=== PATIENT | male | born 1965 | race Caucasian/White ===

== ENCOUNTER 2018-12-16 08:21 | Observation (INO) | payer BC, OTHER ==
[~2018-12-16] VITALS: Ht 182.9 cm; Wt 149.3 kg
[~2018-12-16 08:21] MED LIST: Z.0.BENTYL20 MG; Z.0.DEXILANT60 MG; Z.0.NORCO 10-325 T1; Z.0.OMEPRAZOLE40 MG
--- OUTSIDE RECORDS SUMMARY | 2018-12-16 08:24 | XMS REPORT | Continuity of Care Document ---
Author Author [facility] Interface Address Unknown Phone Unavailable Problems Problem Status Onset Date Classification Date Reported Comments Source UNSPECIFIED ROTATOR CUFF TEAR OR RUPTURE Active 03/11/2018 [facility] Medications Medication Details Route Status Patient Instructions Ordering Provider Order Date Source Allergies, Adverse Reactions, Alerts Substance Category Reaction Severity Reaction type Status Date Reported Comments Source Immunizations Immunization Date Given Site Status Last Updated Comments Source Results Order Name Results Value Reference Range Date Interpretation Comments Source Shoulder series DX Shoulder series DX Study: Left shoulder, 3 views Clinical Indication: - M75.102 Unspecified rotator cuff tear or rupture of left shoulder, not specified as traumatic Comparison: None FINDINGS: Multiple views of the left shoulder show no acute bony fracture, joint dislocation, or suspicious osseous lesion. Joint spaces are well-preserved. Bony mineralization is normal. Soft tissues are unremarkable. IMPRESSION: Normal exam of the left shoulder. SL: [id number] 03/11/2018 - - Read by: Oneal Rudolph MD Dictated Date/time: 03/11/18 14:02 Electronically Signed by: Oneal Rudolph MD 03/11/18 14:03 FINAL REPORT [facility] Vital Signs Vital Sign Value Date Comments Source Encounters Location Location Details Encounter Type Encounter Number Reason For Visit Attending Provider ADM Date DC Date Status Source [facility] Outpatient [id number] Avril Bryant 03/11/2018 03/12/2018 [facility] Procedures Procedure Code Date Perfomer Comments Source
--- OUTSIDE RECORDS SUMMARY | 2018-12-16 08:24 | XMS REPORT | Summary of Care ---
Author Author [facility] Organization [facility] Address Unknown Phone Unavailable Encounter HQ Encntr_alias(FIN) [id number] Date(s): 03/11/18 - 03/11/18 [facility] [address] [place] [address]- Discharge Disposition: Home or Self Care Attending Physician: Avril Bryant MD Vital Signs No data available for this section Problem List No data available for this section Allergies, Adverse Reactions, Alerts No data available for this section Medications No data available for this section Results No data available for this section Immunizations No data available for this section Procedures No data available for this section Social History No data available for this section Assessment and Plan No data available for this section
--- OUTSIDE RECORDS SUMMARY | 2018-12-16 08:24 | XMS REPORT | Clinical Summary ---
Author Author [facility] Address Unknown Phone Unavailable Care Team Providers Care Casing Soaker Name Role Phone Stuart Pacheco MD PCP Allergies No Known Allergies Medications End Date Status Medication Sig Dispensed Refills Start Date Active acetaminophen-codeine acetaminophen 0 (TYLENOL WITH CODEINE #3) 300 300-30 mg per tablet mg-codeine 30 mg tablet Active finasteride (PROSCAR) 5 Take 1 tablet 0 mg tablet every day by oral route. Active methylPREDNISolone as directed 0 (MEDROL, FANG,) 4 mg tablet Active tamsulosin (FLOMAX) 0.4 Take 1 0 mg capsule,extended capsule every release 24hr day by oral route. 05/03/2018 meloxicam (MOBIC) 15 mg Take 1 tablet 30 tablet 2 tabletIndications: Right (15 mg total) 8 wrist tendonitis by mouth daily for 30 days. Active Problems Problem Noted Date Right wrist pain 04/03/2018 Osteoarthritis of left knee 06/29/2016 Encounters Care Team Description Date Type Specialty Wilmer Smith MD Right wrist tendonitis (Primary Dx); Neuropathy of right ulnar nerve at wrist 04/03/2018 Office Visit Orthopedic Surgery Isrrael Mondragon MD Shoulder impingement, left (Primary Dx); Acute pain of left shoulder 03/25/2018 Office Visit Sports Medicine after 12/15/2017 Family History Medical History Relation Name Comments Diabetes Brother Relation Name Status Comments Brother Social History Date Tobacco Use Types Packs/Day Years Used Never Smoker Smokeless Tobacco: Snuff Current User Tobacco Cessation: Ready to Quit: No; Counseling Given: No Alcohol Use Drinks/Week oz/Week Comments Yes Sex Assigned at Date Recorded Not on file Industry Job Start Date Occupation Not on file Not on file Not on file Travel End Travel History Travel Start No recent travel history available. Last Filed Vital Signs Not on file Plan of Treatment Health Maintenance Due Date Last Done Comments COLON CANCER SCREENING 2016 SHINGLES VACCINES (1 of 2016 2) INFLUENZA VACCINE 06/25/2018 Procedures Comments Procedure Name Priority Date/Time Associated Diagnosis XR WRIST 3+ VW RIGHT Routine 04/03/2018 Right wrist pain 2:05 PM CDT XR SHOULDER 2+ VW LEFT Routine 03/25/2018 Sprain of left shoulder, 4:27 PM CDT unspecified shoulder sprain type, initial encounter after 12/15/2017 Results * XR Wrist 3+ Vw Right (04/03/2018 2:05 PM CDT) Narrative Performed At [facility] Xrays: The x-rays were ordered and personally reviewed by me. 3 views of the right wrist Reason for exam: right wrist pain Impression: Right wrist with a calcification noted just proximal to the lunate Performing Organization Address [facility] Phone Number [facility] [address] [place] [address] * XR Shoulder 2+ Vw Left (03/25/2018 4:27 PM CDT) Narrative Performed At [facility] Normal joint spaces with no obvious fractures or dislocations Performing Organization Address [facility] Phone Number [facility] [address] [place] [address] after 12/15/2017 Insurance Payer Benefit Subscriber ID Type Phone Address Plan / Group AETNA AETNA PPO xxxxxxxxxx PPO OPEN CHOICE Advance Directives Patient has advance care planning documents on file. For more information, sonny e contact: Jim Swan [address] [place] [address]
[2018-12-16] MEDS ORDERED: KETOROLAC TROMETHAMINE 30 MG/ML VIAL IV STA (08:50)
[2018-12-16 09:22] LABS: BASOPHILS # (AUTO) 0.1 (0.0-0.1); BASOPHILS % 0.7 % (0.0-1.0); EOSINOPHILS # (AUTO) 0.2 (0.0-0.4); EOSINOPHILS % 2.6 % (0.0-6.0); HEMATOCRIT 46.7 % (38.2-49.6); HEMOGLOBIN 15.9 g/dL (14.0-18.0); LYMPHOCYTES # (AUTO) 2.4 (1.0-3.2); LYMPHOCYTES % 34.4 % (18.0-39.1); MEAN CORPUSCULAR HEMOGLOBIN 30.1 pg (28-32); MEAN CORPUSCULAR VOLUME 88.4 fL (81-99); MONOCYTES # (AUTO) 0.4 (0.2-0.8); MONOCYTES % 5.1 % (4.4-11.3); NEUTROPHILS % 56.9 % (38.7-80.0); PLATELET COUNT 220 x10e3/uL (140-360); RED BLOOD COUNT 5.28 x10e6/uL (4.3-5.7); RED CELL DISTRIBUTION WIDTH 12.6 % (11.7-14.4)
--- NOTE | 2018-12-16 09:29 | Diagnostic Imaging Report ---
EXAMINATION: CHEST 2 VIEWS INDICATION: Chest pain COMPARISON: None FINDINGS: TUBES and LINES: None. LUNGS: Lungs are well inflated. Mild patchy opacity at the left lung base, likely atelectasis. There is no evidence of lobar consolidation or pulmonary edema. PLEURA: No pleural effusion or pneumothorax. HEART AND MEDIASTINUM: The cardiomediastinal silhouette is unremarkable. BONES AND SOFT TISSUES: No acute osseous lesion. Soft tissues are unremarkable. UPPER ABDOMEN: No free air under the diaphragm. IMPRESSION: No acute radiographic abnormality. Signed by: Dr. Jailyn Ruiz MD on 12/16/2018 9:25 AM
[2018-12-16 10:35] LABS: ALANINE AMINOTRANSFERASE 34 IU/L (0-55); ALBUMIN 3.7 g/dL (3.5-5.0); ALBUMIN/GLOBULIN RATIO 1.2 (0.8-2.0); ALKALINE PHOSPHATASE 64 IU/L (40-150); AMYLASE 48 U/L (25-125); ANION GAP 12.8 mmol/L (8-16); BLOOD UREA NITROGEN 14 mg/dL (7-26); BUN/CREATININE RATIO 15 (6-25); CALCIUM 8.5 mg/dL (8.4-10.2); CARBON DIOXIDE 27 mmol/L (22-29); CHLORIDE 101 mmol/L (98-107); CREATINE KINASE 164 IU/L (30-200); CREATININE, SERUM 0.93 mg/dL (0.72-1.25); EST GLOMERULAR FILTRATION RATE > 60 ML/MIN (60-); GLUCOSE 146 mg/dL (74-118); LIPASE 179 U/L (8-78); POTASSIUM 3.8 mmol/L (3.5-5.1); SODIUM 137 mmol/L (136-145)
[2018-12-16 13:24] LABS: CLARITY,URINE SL CLOUDY (CLEAR); COLOR,URINE YELLOW (YELLOW)
[2018-12-16 13:25] LABS: BILIRUBIN,URINE NEGATIVE (NEGATIVE); KETONES,URINE NEGATIVE (NEGATIVE); LEUKOCYTE ESTERASE ,URINE NEGATIVE (NEGATIVE); NITRITE,URINE NEGATIVE (NEGATIVE); PROTEIN,URINE DIPSTICK NEGATIVE (NEGATIVE); URINE UROBILINOGEN 0.2 mg/dL (0.2 - 1)
[2018-12-16 13:34] LABS: EPITHELIAL CELLS,URINE RARE /LPF; RBC,URINE 0-5 /HPF (0-5)
--- NOTE | 2018-12-16 15:19 | Diagnostic Imaging Report ---
EXAMINATION: CT of the abdomen and pelvis with contrast. TECHNIQUE: Helical CT images of the abdomen and pelvis were performed from the lung bases to the lesser trochanters after the intravenous administration of 150 cc of Isovue 300 and the oral administration of none. Coronal and sagittal reformatted images were obtained. Dose modulation, iterative reconstruction, and/or weight based adjustment of the mA/kV was utilized to reduce the radiation dose to as low as reasonably achievable. COMPARISON: None. CLINICAL HISTORY:Left side abdominal pain DISCUSSION: ABDOMEN/PELVIS: LOWER THORAX:Unremarkable. HEPATOBILIARY: Hepatic steatosis. No focal lesion. No intra-or extrahepatic biliary ductal dilation. Small calcified gallstone. SPLEEN: No splenomegaly. PANCREAS: No focal masses or ductal dilatation. ADRENALS: No adrenal nodules. KIDNEYS/URETERS: No hydronephrosis, stones, or solid mass lesions. PELVIC ORGANS/BLADDER: The bladder is normal. PERITONEUM/RETROPERITONEUM: No free air or fluid. LYMPH NODES: No intra-abdominal, retroperitoneal, pelvic or inguinal lymphadenopathy. VESSELS: Unremarkable. GI TRACT: Colonic diverticulosis particularly within the sigmoid colon. No inflammatory change. BONES AND SOFT TISSUE: No bony destructive lesions. No soft tissue abnormalities. IMPRESSION: Colonic diverticulosis without inflammatory change. Small calcified gallstone. Signed by: Dr. Noah Chatman M.D. on 12/16/2018 3:16 PM
[2018-12-16] MEDS ORDERED: ONDANSETRON HCL INJ 2MG/ML 2ML 2 MG/ML VIAL IV PRN (17:45)
[2018-12-16] MEDS ORDERED: HYDROMORPHONE 1MG/1ML INJ IV PRN (17:45)
[2018-12-16] MEDS: SODIUM CHLORIDE 0.9% 1000ML 1,000 ML IV SCH ×2 (18:05→23:41)
--- OUTSIDE RECORDS SUMMARY | 2018-12-16 19:01 | XMS REPORT | Clinical Summary ---
Author Author [facility] Address Unknown Phone Unavailable Care Team Providers Care Field Technical Support Consultant Name Role Phone Stuart Pacheco MD PCP [...] proximal to the lunate Performing Organization Address [facility] Phone Number [employer] [address] [place] [address] * XR Shoulder 2+ Vw Left (03/25/2018 4:27 PM CDT) Narrative Performed At [facility] Normal joint spaces with no obvious fractures or dislocations Performing Organization Address [facility] Phone Number [employer] [address] [place] [address] after 12/15/2017 Insurance Payer Benefit Subscriber ID Type Phone Address Plan / Group AETNA AETNA PPO xxxxxxxxxx PPO OPEN CHOICE Advance Directives Patient has advance care planning documents on file. For more information, sonny e contact: Jim Swan [address] [place] [address]
--- OUTSIDE RECORDS SUMMARY | 2018-12-16 19:01 | XMS REPORT ---
Author Author [facility] Address Unknown Phone Unavailable Care Team Providers Care Inker Name Role Phone Hever MICHELLE Unavailable Unavailable Problems This patient has no known problems. Allergies, Adverse Reactions, Alerts This patient has no known allergies or adverse reactions. Medications This patient has no known medications. Results Test Description Test Time Test Comments Text Results Atomic Results Result Comments CT ABDOMEN/PELVIS W 2018-12-16 15:00:00 [place] [id number] Patient Name: OTILIA ECKERT MR #: [id number] : 1965 Age/Sex: 53/M Req #: [id number] Adm Physician: Ordered by: ISAC MICHELLE MD Report #: [id number] Location: ER Room/Bed: Procedure: [id number] CT/CT ABDOMEN/PELVIS W Exam Date: 12/16/18 Exam Time: 1345 REPORT STATUS: Signed EXAMINATION: CT of the abdomen and pelvis with contra st. TECHNIQUE: Helical CT images of the abdomen and pelvis were performed from the lung bases to the lesser trochanters after the intravenous administration of 150 cc of Isovue 300 and the oral administration of none. Coronal and sagittal reformatted images were obtained. Dose modulation, iterative reconstruction, and/or weight based adjustment of the mA/kV was utilized to reduce the radiation dose to as low as reasonably achievable. COMPARISON: None. CLINICAL HISTORY:Left side abdominal pain DISCUSSION: ABDOMEN/PELVIS: LOWER THORAX:Unremarkable. HEPATOBILIARY: Hepatic steatosis. No focal lesion. No intra-or extrahepatic biliary ductal dilation. Small calcified gallstone. SPLEEN: No splenomegaly. PANCREAS: No focal masses or ductal dilatation. ADRENALS: No adrenal nodules. KIDNEYS/URETERS: No hydronephrosis, stones, or solid mass lesions. PELVIC ORGANS/BLADDER: The bladder is normal. PERITONEUM/RETROPERITONEUM: No free air or fluid. LYMPH NODES: No intra- abdominal, retroperitoneal, pelvic or inguinal lymphadenopathy. VESSELS: Unremarkable. GI TRACT: Colonic diverticulosis particularly within the sigmoid colon. No inflammatory change. BONES AND SOFT TISSUE: No bony destructive lesions. No soft tissue abnormalities. IMPRESSION: Colonic diverticulosis without inflammatory change. Small calcified gallstone. Signed by: Dr. Jackson Borrego M.D. on 12/16/2018 3:16 PM Dictated By: JACKSON BORREGO MD 1516 Transcribed By: JOSH on 12/16/18 1516 COPY TO: ISAC MICHELLE MD CHEST 2 VIEWS 2018-12-16 09:24:00 [place] [id number] Patient Name: OTILIA ECKERT MR #: [id number] : 1965 Age/Sex: 53/M Req #: [id number] Adm Physician: Ordered by: ISAC MICHELLE MD Report #: [id number] Location: ER Room/Bed: Procedure: [id number] DX/CHEST 2 VIEWS Exam Date: 12/16/18 Exam Time: 0900 REPORT STATUS: Signed EXAMINATION: CHEST 2 VIEWS INDICATION: Chest pain COMPARISON: None FINDINGS: TUBES and LINES: None. LUNGS: Lungs are well inflated. Mild patchy opacity at the left lung base, likely atelectasis. There is no evidence of lobar consolidation or pulmonary edema. PLEURA: No pleural effusion or pneumothorax. HEART AND MEDIASTINUM: The cardiomediastinal silhouette is unremarkable. BONES AND SOFT TISSUES: No acute osseous lesion. Soft tissues are unremarkable. UPPER ABDOMEN: No free air under the diaphragm. IMPRESSION: No acute radiographic abnormality. Signed by: Dr. Shakira Mtz MD on 12/16/2018 9:25 AM Dictated By: SHAKIRA MTZ MD 4 Transcribed By: JOSH on 12/16/18924 COPY TO: ISAC MICHELLE MD
[2018-12-16] MEDS ORDERED: no home meds (19:21)
[2018-12-16] MEDS ORDERED: IOPAMIDOL 370 MG/ML 200 ML INFUS..BTL INJ ONE (20:45)
[2018-12-16] MEDS ORDERED: SODIUM CHLORIDE 0.9% 50ML 50 ML ONE (20:45)
[2018-12-16 21:49] LABS: CREATINE KINASE MB 1.1 ng/mL (0-5.0)
[2018-12-16 22:08] VITALS: BP 170/88
--- NOTE | 2018-12-16 22:10 | NUR ---
RECEIVED PATIENT AAO3 FROM ER VIA WHEELCHAIR. RESP EVEN AND UNLABORED, RA. DENIES CHEST PAIN. STATES LUQ PAIN IS 3/10, BUT "TOLERABLE". PATIENT IS AMB, STEADY GAIT. TELE #12 - SR. SKIN INTACT. DENIES ANY HOME MEDS. UPDATED PATIENT ON PLAN OF CARE. NO NEEDS VOICED AT THIS TIME. WILL CONTINUE TO MONITOR THE PATIENT CLOSELY.
[2018-12-16 22:39] VITALS: BP 170/88
[2018-12-16 22:50] VITALS: BP 170/88
--- NOTE | 2018-12-17 01:50 | Consultation ---
DATE OF CONSULTATION: December 16, 2018 Patient admitted on the 16 of [address] Turner and seen in consultation on the 16 of December. HISTORY: This 53-year-old patient presented to the emergency room complaining of chest pain, and he was kindly referred by Dr. Turner for cardiac evaluation. The patient stated that he was having some left-sided chest pain which he described being deep under his ribcage for about 1 month. The pain increases with intensity on and off, however, it has been unrelenting and was getting worse, and according to the advice of his who is a nurse at [facility] [employer], he went here to the emergency room and had evaluation including EKG which is normal, a CT scan of the abdomen showed a single gallstone. There is some elevation of the lipase with remainder of the chemistry being within normal limits. The patient states that the pain is sharp, however, it increased in intensity. He feels the pain across his chest was like a pressure or tightness and this may happen with anxiety. It is not related to any deep breathing and he has not noted any tender area. He has tried Tylenol and ibuprofen and neither one have helped his pain. 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 It is of significance that about a year ago he stated that he was leaning over an air conditioner compressor and developed some left-sided chest pain and was told that he had a fracture of 2 ribs. The patient states that he is known to have hyperlipidemia, but is on no medications. SOCIAL HISTORY: Negative. FAMILY HISTORY: Revealed patient is adopted, however, he is in contact with his mother and grandparents. The grandparents apparently reached age of over 90 and are healthy and also his mother has no apparent illness. The patient does not know his father. REVIEW OF SYSTEMS: The remainder of systems reviewed, revealed patient denies any fever, headache, sore throat. He denies any shortness of breath. The patient denies any right-sided abdominal pain. Has no nausea, vomiting, diarrhea, constipation. Patient denies any leg pain or leg swelling. PHYSICAL EXAMINATION: VITAL SIGNS: Reveals a blood pressure 140/84. NECK: Carotid pulses are present. CHEST: Clear to auscultation. CARDIOVASCULAR SYSTEM: There is a normal apical impulse. The rhythm is regular. First and second are normal. There is no S3. There is no rub. ABDOMEN: Soft. There is no tenderness, no organomegaly. EXTREMITIES: Pulses are present 2+ bilaterally. There is no peripheral edema. NEUROLOGIC: Does not reveal any motor defect, and cranial nerves are intact. IMPRESSION: 1. Chest pain syndrome. 2. Gallstone. 3. History of hyperlipidemia. 4. Elevation of lipase. The patient's electrocardiogram is normal, however, I would recommend a nuclear treadmill test since the patient has hyperlipidemia by history and is significantly overweight. Also, an echocardiogram may be helpful for further evaluation of his chest pain as well as possible CT scan of the chest, x-ray of his left ribs since he was told in the past to have some rib fracture despite having no localized tenderness. However, he says the pain sometimes radiates to his dorsal spine and could be neuralgia, which may also be considered in the differential diagnosis of his chest pain. Thank you very much for letting me see this very nice patient. Job#: [id number]
[2018-12-17 04:00] VITALS: BP 162/93
[2018-12-17 04:54] LABS: BASOPHILS % 0.5 % (0.0-1.0); EOSINOPHILS # (AUTO) 0.2 (0.0-0.4); EOSINOPHILS % 2.8 % (0.0-6.0); HEMATOCRIT 42.6 % (38.2-49.6); HEMOGLOBIN 14.5 g/dL (14.0-18.0); LYMPHOCYTES # (AUTO) 2.5 (1.0-3.2); LYMPHOCYTES % 31.2 % (18.0-39.1); MEAN CORPUSCULAR HEMOGLOBIN 29.8 pg (28-32); MEAN CORPUSCULAR VOLUME 87.5 fL (81-99); MONOCYTES # (AUTO) 0.5 (0.2-0.8); MONOCYTES % 6.4 % (4.4-11.3); NEUTROPHILS # (AUTO) 4.7 (2.1-6.9); NEUTROPHILS % 58.7 % (38.7-80.0); PLATELET COUNT 210 x10e3/uL (140-360); RED BLOOD COUNT 4.87 x10e6/uL (4.3-5.7); RED CELL DISTRIBUTION WIDTH 12.5 % (11.7-14.4)
[2018-12-17 05:19] LABS: ANION GAP 12.7 mmol/L (8-16); BLOOD UREA NITROGEN 9 mg/dL (7-26); BUN/CREATININE RATIO 12 (6-25); CALCIUM 8.3 mg/dL (8.4-10.2); CARBON DIOXIDE 25 mmol/L (22-29); CHLORIDE 101 mmol/L (98-107); CHOL/HDL RATIO 6.5 (3.9-4.7); CHOLESTEROL 201 MD/DL (0-199); CREATININE, SERUM 0.77 mg/dL (0.72-1.25); EST GLOMERULAR FILTRATION RATE > 60 ML/MIN (60-); GLUCOSE 118 mg/dL (74-118); HDL CHOLESTEROL 31 MG/DL (40-60); LDL CHOLESTEROL 137 MG/DL (60-130); POTASSIUM 3.7 mmol/L (3.5-5.1); SODIUM 135 mmol/L (136-145); TRIGLYCERIDES 167 MG/DL (0-149)
[2018-12-17 05:47] LABS: CREATINE KINASE MB 1.1 ng/mL (0-5.0)
[2018-12-17] MEDS ORDERED: SINCALIDE 3 MCG/VIAL INJ ONE (07:58)
[2018-12-17 08:54] VITALS: BP 171/79
--- NOTE | 2018-12-17 09:19 | NUR ---
KATIUSKA INTO SEE PT, DISCUSSED POC
[2018-12-17 09:31] VITALS: BP 171/79
--- NOTE | 2018-12-17 10:03 | History and Physical ---
PRIMARY CARE PROVIDER: [facility]. CHIEF COMPLAINT: Chest pain. HISTORY OF PRESENT ILLNESS: Mr. Molina is a 53-year-old male who presented with left-sided chest pain, severe, episodic, not related to exertion, severity around 8/10. He is a lifelong nonsmoker. 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 He reports that the chest pain is not associated with any nausea, vomiting or shortness of breath. It is mostly on the left side and goes up around his arm. He denies any nausea or vomiting along with it. He has history of diverticulitis in the past and no other medical problem. He is not taking any medications. REVIEW OF SYSTEMS GENERAL: Denies any fever or chills. HEAD: Denies any head trauma. ENT: Denies any earache. CVS: Chest pain. RESPIRATORY: Denies any shortness of breath. GI: Denies any nausea or vomiting. OTHER: Rest of the review of systems are negative except as in HPI. PAST MEDICAL HISTORY: None. PAST SURGICAL HISTORY: None. FAMILY AND SOCIAL HISTORY: Does not smoke. Does not drink. 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 PHYSICAL EXAMINATION VITAL SIGNS: Temperature 97.2, pulse of 20. Blood pressure has been running between 160s to 170s over 89. GENERAL APPEARANCE: Awake, alert, oriented. No focal neurologic deficit. Obese. HEENT: Head is atraumatic and normocephalic. NECK: Supple. CHEST: Clear to auscultation bilaterally. No wheezing. HEART: S1, S2 audible. ABDOMEN: Soft, nontender, nondistended. EXTREMITIES: No clubbing, cyanosis or edema. NEUROLOGIC: He is awake and alert, following commands. LABS: Sodium 135, potassium 3.7, chloride 101, BUN 9, creatinine 0.7. White count of 7.95, hemoglobin 14.5, platelets 210. HIDA scan report is pending. CT abdomen and pelvis was done in the emergency room and showed colonic diverticulosis without inflammatory changes and small calcified gallstone. ASSESSMENT: Mr. Molina is a 53-year-old male with no known medical problem. Hypertensive here in the hospital. He came in with left-sided lower chest and upper abdominal pain, extremely severe to the point that he cannot function. It is episodic. No clear-cut etiology. Cardiac enzymes have been negative. PLAN 1. Cardiology consult and stress test. 2. GI consult. The patient has history of colonic diverticulosis. 3. Follow up with results of HIDA scan. 4. I will also do a CT of the chest to rule out any PE. Job#: [id number]
--- NOTE | 2018-12-17 10:10 | NUR ---
CONSENT OBTAINED FOR STRESS TEST, PT AWARE OF NPO STATUS
--- NOTE | 2018-12-17 10:30 | NUR ---
SPOKE WITH MD RG AND MD SAMUELS, BOTH AWARE OF CONSULTS
--- NOTE | 2018-12-17 11:03 | Diagnostic Imaging Report ---
Hepatobiliary Scan with Gallbladder Ejection Fraction Clinical information: Upper abdominal pain x several months Report: Following intravenous administration of 7.1 millicuries of Tc-99m mebrofenin, dynamic images of the abdomen in the anterior projection were obtained through 30 minutes. Sincalide (CCK analog) 3.0 micrograms was administered intravenously over 30 minutes with additional imaging for determination of gallbladder ejection fraction. Perfusion to the liver is normal. Extraction of tracer from the blood pool by the liver parenchyma is normal. Tracer is seen promptly within the biliary tract. The gallbladder begins to fill by 17 minutes post-injection of tracer and fills adequately. Tracer is seen in the small bowel by 3 minutes. The gallbladder ejection fraction with administration of sincalide is 92% (normal greater than 40%). Impression: 1. Filling of the gallbladder excludes the diagnosis of acute cystic duct obstruction/acute cholecystitis. 2. Normal gallbladder ejection fraction of 92% does not support the clinical diagnosis of chronic cholecystitis/gallbladder dyskinesia. Signed by: Dr. Carine Shelby M.D. on 12/17/2018 11:00 AM
[2018-12-17] MEDS ORDERED: HYDROMORPHONE 2MG/ML 2 MG/ML ML IV PRN (13:00)
--- NOTE | 2018-12-17 13:21 | NUR ---
PT BACK IN ROOM VIA WC FROM STRESS TEST, NO CHANGE IN CONDITION
--- NOTE | 2018-12-17 14:40 | NUR ---
PT BACK IN ROOM FROM CT, VOICES NO C/O AT THIS TIME, PT WANTS TO SPEAK WITH "BEFORE TAKING NEW METOPROLOL", HANDOUT GIVEN
[2018-12-17] MEDS: METOPROLOL SUCCINATE 50 MG TAB XL PO SCH (15:25)
[2018-12-17] MEDS ORDERED: IOPAMIDOL 370 MG/ML 200 ML INFUS..BTL INJ ONE (16:07)
[2018-12-17] MEDS ORDERED: SODIUM CHLORIDE 0.9% 50ML 50 ML ONE (16:07)
[2018-12-17 16:43] VITALS: BP 163/93
--- NOTE | 2018-12-17 16:54 | Diagnostic Imaging Report ---
EXAM: CTA Chest WITH contrast INDICATION: Chest pain , rule out pulmonary embolus COMPARISON: None. TECHNIQUE: The Chest was scanned utilizing a multidetector helical scanner after administration of IV contrast. Coronal and sagittal reformations were obtained. Pulmonary embolism CTA protocol. IV CONTRAST: 100 mL Isovue-370 COMPLICATIONS: None RADIATION DOSE: Total DLP: 610 mGy*cm Estimated effective dose: (DLP x 0.015 x size factor) mSv CTDIvol has been reviewed. It is below the limits set by the Radiation Protocol Committee (RPC). Appropriate CT dose reduction techniques were utilized. FINDINGS: Lines and Tubes: None. Lower Neck: Visualized thyroid gland grossly unremarkable. Heart and Great Vessels: The aorta and main pulmonary artery measure 36 and 28 mm. respectively. No pericardial effusion. No central pulmonary and was. Peripheral evaluation is mildly limited due to motion. Lymph Nodes: No suspicious adenopathy. Lungs: Trachea and central bronchi are unremarkable. Dependent groundglass opacities statistically represent atelectasis. No pneumothorax. No focal consolidation. Upper abdomen: No acute findings. Bones and Soft Tissues: Mild to moderate degenerative changes spine. IMPRESSION: 1. No central pulmonary embolus. Signed by: Dr. Fazal Parsons MD on 12/17/2018 4:51 PM
--- NOTE | 2018-12-17 17:06 | NUR ---
TOLERATING PO, VOICES NO NEEDS AT THIS TIME, CALL LIGHT WITHIN REACH
--- NOTE | 2018-12-17 19:11 | NUR ---
WALKING ROUNDS PERFORMED, RECEIVED PT LAYING SEMI FOWLERS IN BED, AAOX3, RR EVEN AND NON-LABORED, ON RA. NO S/SX OF DISTRESS NOTED. LEFT PT LAYING SEMI FOWLERS IN BED, BED IN LOW LOCKED POSITION, SIDE RAILS UPX2, CALL LIGHT AND PHONE WITHIN REACH.
[2018-12-17 20:00] VITALS: BP 172/89
[2018-12-17] MEDS ORDERED: ATORVASTATIN 20 MG TAB PO SCH (21:00)
[2018-12-17 21:15] VITALS: BP 172/89
--- NOTE | 2018-12-17 23:20 | Consultation ---
DATE OF CONSULTATION: December 17, 2018 GI CONSULT NOTE REFERRING PHYSICIAN: Ray Cano MD REASON FOR CONSULT: Left-sided chest pain for 1 month. HISTORY OF PRESENTING ILLNESS: A 53-year-old very pleasant white male with obese body habitus, got admitted with recurrent left lower chest pain for more than a month. It is not associated with any exertional shortness of breath, palpitation, or diaphoresis. He has no known coronary artery disease. Chest pain does not interfere with sleep. He has been experiencing this for almost about a month 4 to 5 times every day. He got admitted through the emergency room because chest pain frequency had increased. This prompted him to seek medical assistance to ensure that the pain is not coming from heart. Here in emergency room, he was hemodynamically stable. Cardiac workup so far is negative including negative cardiac biomarkers. He does not have any known history of reflux. Never has had any upper endoscopy for any reason. He does not have any history of peptic ulcer disease. He does not take any NSAIDs on a chronic basis. He is not on any prescription drugs. Denies any lower GI symptoms. Although he is 53, he has not had a screening colonoscopy so far. REVIEW OF SYSTEMS: Twelve-point system reviewed, symptomatology is limited as per HPI. PAST MEDICAL HISTORY: History of colonic diverticulitis in past. PAST SURGICAL HISTORY: Colonoscopy x 2, last one more than [address] Garcia. FAMILY HISTORY: Negative. SOCIAL HISTORY: No smoking, alcohol, or any illicit drug use. , lives with his . 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 HOME MEDICATIONS: None. ALLERGIES: NONE. INPATIENT MEDICATION LIST: Reviewed. PHYSICAL EXAMINATION VITAL SIGNS: Temperature 96.1, pulse 87, respirations 20, blood pressure 163/93, and oxygen saturation 97% on room air. GENERAL: Not in any acute distress. Obese body habitus. Oral mucosa is moist. Anicteric sclerae. CVS: S1, S2 regular. LUNGS: Bilaterally grossly clear. There is a palpable left lower quadrant chest tenderness, not reproducible. ABDOMEN: Obese, soft. No palpable epigastric tenderness. Occasional left upper quadrant tenderness on deep palpation. No rebound, rigidity, or guarding. Positive bowel sounds. EXTREMITIES: Warm. No leg edema. LABS: Peripheral cell count normal. Electrolytes normal. Liver enzymes normal. Total cholesterol 201, triglycerides 167, HDL 31, and LDL 137. Amylase 48, lipase 179 (upper limit is 78 here). CT of the chest is negative for any pulmonary embolus. HIDA scan is negative. CT of the abdomen and pelvis with contrast showed colonic diverticulosis without inflammatory changes. Small calcified gallstones. Chest x-ray: No acute radiographic abnormality. IMPRESSION: 1. Atypical left lower chest pain for about a month. It is of noncardiac nature, sometimes reproducible on deep palpation. No known prior reflux. Therefore, this chest pain could be due to underlying reflux, hypersensitive esophagus. 2. Differential also includes costochondritis. PLAN: Continue present medical management. IV fluids. Allow oral diet. NPO past midnight. Upper endoscopy tomorrow to exclude any structural cause in the upper GI tract contributing to left upper quadrant or left lower chest pain. I thank Dr. Cano for allowing me to participate in the care of this patient. Job#: [id number] CF ASA
[2018-12-18] VITALS: BP 145/86
--- NOTE | 2018-12-18 01:19 | Consultation ---
DATE OF CONSULTATION: December 17, 2018 CHIEF COMPLAINT: Left upper quadrant pain. HISTORY OF PRESENT ILLNESS: Patient is a 53-year-old male with chronic recurrent pain in left upper quadrant radiating to the back without associated GI symptoms of nausea, vomiting, or fevers. Patient stated that pain is not related to eating or exertion. 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 PAST MEDICAL HISTORY: Positive only for 1 episode of diverticulitis in the distant past. PAST SURGICAL HISTORY: He has no previous surgery. SOCIAL HABITS: The patient denies smoking, alcohol abuse. REVIEW OF SYSTEMS: As mentioned he has chest pain. No shortness of breath. No cough. No lightheadedness. PHYSICAL EXAMINATION: VITAL SIGNS: Stable, afebrile. GENERAL: He is awake, alert, in mild discomfort. HEENT: Sclerae nonicteric. NECK: Supple. LUNGS: Clear. HEART: Regular rate and rhythm. ABDOMEN: Soft. Tenderness is palpated over the left costal margins, but not exacerbated by pressure which is not consistent with costochondritis. EXTREMITIES: Without cyanosis or edema. LABORATORY DATA: White cell count is 7.9, hemoglobin of 14. Liver function tests within normal limits. Lipase 179. Creatinine 0.9. Abdominal CT showed evidence of small calcified gallstone. No dilated gallbladder. HIDA scan is normal without cystic duct obstruction. Ejection fraction is 92%. Chest CT negative for pulmonary embolus. ASSESSMENT: Chest pain in the left upper quadrant, not associated with the gallstone, which is an incidental finding. PLAN: Continue with cardiac workup. Patient may have diet as tolerated. No surgical indication for cholecystectomy. Thank you. Job#: [id number]
[2018-12-18 04:00] VITALS: BP 122/73
[2018-12-18] MEDS ORDERED: PANTOPRAZOLE SOD 40 MG TABEC PO SCH (07:30)
--- NOTE | 2018-12-18 07:57 | NUR ---
PATIENT IS ALERT AND ORIENTED X4, NO RESPIRATORY DISTRESS OBSERVED BUT HIS LUNG SOUNDS ARE DIMINISHED WITH OXYGEN SATURATION ON ROOM AIR 96%. SKIN INTEGRITY INTACT, NO PAIN VOICED. THE PATIENT IS WHEELING OFF THE UNIT AT THIS TIME TO ENDO FOR EGD.
[2018-12-18 08:00] VITALS: BP 147/83
[2018-12-18 08:48] VITALS: BP 147/83
[2018-12-18] MEDS: METOPROLOL SUCCINATE 50 MG TAB XL PO SCH (10:02)
--- NOTE | 2018-12-18 10:03 | NUR ---
PATIENT IS BACK ON THE UNIT FROM ENDOSCOPY IN STABLE CONDITION. HE C/O PAIN TO THE LEFT RIBS AREA THAT COMES AND GO. HE REFUSED PAIN MEDICATION WHEN OFFER, STATED "I WILL LET YOU KNOW WHEN I NEED PAIN MEDICATION". CALL LIGHT WITHIN EASY REACH.
--- NOTE | 2018-12-18 10:49 | Cardiology Report ---
DATE OF STUDY: December 17, 2018 [address] GATED MY[address] PERF[address] SCAN Dr. Chad Mclean supervised the stress test. The patient is a 300-pound patient. This was a 2-day protocol. Nuclear gated myocardial perfusion scan was performed as per protocol at nuclear medicine lab at [facility]. The patient received Myoview about 32.7 mCi for both stress and rest protocols. I did only the nuclear stress test interpretation. Normal gated myocardial perfusion scan. Left ventricular ejection fraction is about 55% to 60%. Normal study. Job#: [id number]
--- NOTE | 2018-12-18 11:55 | NUR ---
WALKING ROUNDS MADE, PATIENT OBSERVED SOUNDLY ASLEEP WITHOUT RESPIRATORY DISTRESS.
[2018-12-18 12:39] VITALS: BP 136/74
--- NOTE | 2018-12-18 13:53 | NUR ---
PATIENT WAS OFF THE UNIT TO RADIOLOGY FOR THE SECOND HALF OF STRESS TESTING, HE'S NOW BACK ON THE UNIT IN STABLE CONDITION.
--- NOTE | 2018-12-18 15:04 | NUR ---
CASE MANAGEMENT INITIAL ASSESSMENT Rn Navigator to bedside to discuss plan of care with patient/family. CM/SW role and care transitions discussed. Anticipated discharge plan discussed along with duration of care. CM discussed patients right to make decisions in care. CM/SW work hours given. Patient lives: PATIENT LIVES [place] [address] [place] [address] Admit/Transfer: ED POA/Emergency contact: PERSON TO NOTIFY TOMAS CHAPA [phone] Current/Previous Home Health: NOT AT THIS TIME PCP/Follow-up Care: PATIENT DOES NOT CURRENTLY HAVE PROVIDER. PATIENT STATES SHE WILL FIND PROVIDER AND MAKE APPOINTMENT. CM TO FOLLOW UP PRIOR TO DISCHARGE Current/Previous DME: NONE Other Services: NOT AT THIS TIME Employment Status: EMPLOYMENT Areas of Concerns: NONE AT THIS TIME Referral Needs: NONE AT THIS TIME Education Needs: NONE IMM/RICHARDS given and signed (if applicable): N/A Goal for discharge: DISCHARGE HOME INDEPENDENT WITH NO NEEDS CM left business card at the bedside with contact information. Name and number was also written on the patients whiteboard. Patient verbalized understanding of discussion. CM will follow-up with ongoing discharge and transition of care needs.
--- NOTE | 2018-12-18 15:45 | NUR ---
CALLED AND SPOKE WITH DR HARP THAT DR GUILLERMO STATED THE PATIENT CAN BE DISCHARGE TO HOME FROM CARDIAC STANDPOINT, ORDER RECEIVED TO DISCHARGE THE PATIENT TO HOME AND HAVE HIM FOLLOW UP WITH HIS PCP IN 1-2 WEEKS.
[2018-12-18 15:47] VITALS: BP 150/86
[2018-12-18] MEDS ORDERED: PANTOPRAZOLE SO40 MG PO (16:03)
[2018-12-18] MEDS ORDERED: TYLENOL WITH C1 EACH PO (16:06)
[2018-12-18] MEDS ORDERED: PREDNISONE20 MG PO (16:06)
--- NOTE | 2018-12-18 16:47 | NUR ---
PATIENT IS DISCHARGED TO HOME. DISCHARGED INSTRUCTIONS, PRESCRIPTIONS AND F/U GIVEN TO THE PATIENT, HE VERBALIZED UNDERSTANDING. IV REMOVED WITH TIP INTACT, ALL PERSONAL ITEMS TAKEN WITH THE PATIENT. LEFT UNIT PER WHEEL CHAIR, ACCOMPANY BY PRIMARY NURSE TO THE FRONT LOBBY IN STABLE CONDITION.
[2018-12-18] MEDS ORDERED: MIDAZOLAM HCL 2 MG/2 ML VIAL ONE (19:32)
[2018-12-18] MEDS ORDERED: FENTANYL CITRATE/PF 100MCG/2 ML INJ ONE (19:32)
[2018-12-18] MEDS ORDERED: LIDOCAINE HCL 2% LOCAL INJ 5 ML SDV VIAL INJ ONE (19:39)
[2018-12-18] MEDS ORDERED: PROPOFOL IV EMULSION 10 MG/ML 20 ML VIAL ONE (19:39)
[2018-12-18] MEDS ORDERED: ATORVASTATIN 40 MG TAB PO SCH (21:00)
== END 2018-12-18 17:03 | disposition home or self-care (01) ==
LOC: ER 08:21 → ERHOLD 18:58 → MED/SURG 22:09
PROVIDERS: ADMIT Internal Medicine Pulmonary Disease; ATTEND Internal Medicine Pulmonary Disease
DX: R07.89 Other chest pain (principal); K80.20 Calculus of gallbladder without cholecystitis without obstruction; K29.70 Gastritis, unspecified, without bleeding; K29.80 Duodenitis without bleeding; E66.9 Obesity, unspecified; E78.5 Hyperlipidemia, unspecified; Z68.41 Body mass index [BMI] 40.0-44.9, adult; R07.1 Chest pain on breathing; Z87.81 Personal history of (healed) traumatic fracture
CPT/HCPCS: 36415 ×2; 43239; 71046; 71260; 74177; 78227; 78452; 80048; 80053; 80061; 81001; 82150; 82550 ×2; 82553 ×2; 83690; 84484 ×2; 85025 ×2; 88305; 88312; 93005; 93017; 93306; 99284; A9502; A9537; G0378 ×3; J1885; J2001; J2250; J2704; J2805; J7030 ×2; Q9967 ×2; S0164; 88304; J2405